=== PATIENT | male | born 2000 | race Caucasian/White ===

== ENCOUNTER 2021-02-24 22:36 | Emergency (ER) | payer OTHER ==
[2021-02-24 22:50] VITALS: BP 155/88; PULSE 79; RESP 22; TEMP 97.7
[2021-02-24] MEDS ORDERED: HYDROmorphone 0.5 MG/0.5 ML SYRINGE IM STA (23:15)
[2021-02-24] MEDS ORDERED: ACETAMINOPHEN TAB 500 MG TAB PO STA (23:15)
[2021-02-24] MEDS ORDERED: IBUPROFEN 800 MG TAB PO STA (23:15)
[2021-02-24] MEDS ORDERED: IBUPROFEN 600 MG STARTER PACK 4 TAB BTL PO STA (23:16)
[2021-02-24] MEDS ORDERED: ACET/COD 300 MG/30 MG STARTER PACK 6 TAB BTL PO STA (23:16)
--- NOTE | 2021-02-24 23:17 | ED ---
Burn/Smoke HPI - General Chief complaint: Burn/Smoke Inhalation Stated complaint: [facility] RT hand burn Time Seen by Provider: 02/24/21 23:05 Source: patient, family, RN notes reviewed, old records reviewed Mode of arrival: ambulatory Limitations: no limitations - History of Present Illness Initial comments: This is a 21-year-old male to the emergency department for evaluation patient did have a work-related thermal burn to his right thumb hand. It is blistering. Pain is severe. Patient has no other medical history takes no medications is in good health. No other burn is noted. Burn was due to patient cutting hand around ground getting splashed hot or MD Complaint: burn (2 right thumb) -: minutes(s) Type of Exposure: hot liquid (Oil) Smoke Inhalation: none Place: industrial Location - Extremities: Right: Hand Severity: moderate Severity scale (1-10): 6 Associated Symptoms: denies other symptoms Treatment Prior to Arrival: dressings - Related Data Allergies Allergy/AdvReac Type Severity Reaction Status Date / Time No Known Allergies Allergy Verified 02/24/21 22:49 Review of Systems ROS Statement: Those systems with pertinent positive or pertinent negative responses have been documented in the HPI. ROS Other: All systems not noted in ROS Statement are negative. Past Medical History Past Medical History: Asthma History of Any Multi-Drug Resistant Organisms: None Reported Past Surgical History: No Surgical Hx Reported Past Psychological History: No Psychological Hx Reported Smoking Status: Never smoker Past Alcohol Use History: None Reported Past Drug Use History: None Reported General Exam Limitations: no limitations General appearance: alert, in no apparent distress Head exam: Present: atraumatic, normocephalic, normal inspection Eye exam: Present: normal appearance, PERRL, EOMI. Absent: scleral icterus, conjunctival injection, periorbital swelling ENT exam: Present: normal exam, mucous membranes moist Neck exam: Present: normal inspection. Absent: tenderness, meningismus, lymphadenopathy Respiratory exam: Present: normal lung sounds bilaterally. Absent: respiratory distress, wheezes, rales, rhonchi, stridor Cardiovascular Exam: Present: regular rate, normal rhythm, normal heart sounds. Absent: systolic murmur, diastolic murmur, rubs, gallop, clicks GI/Abdominal exam: Present: soft, normal bowel sounds. Absent: distended, tenderness, guarding, rebound, rigid Extremities exam: Present: normal inspection, full ROM, normal capillary refill, other ( has thermal burn to right thumb, second degree). Absent: tenderness, pedal edema, joint swelling, calf tenderness Back exam: Present: normal inspection Neurological exam: Present: alert, oriented X3, CN II-XII intact Psychiatric exam: Present: normal affect, normal mood Skin exam: Present: warm, dry, intact, normal color. Absent: rash Course Vital Signs 02/24/21 22:45 Temperature 97.7 F Pulse Rate 79 Respiratory 22 Rate Blood Pressure 155/88 O2 Sat by Pulse 98 Oximetry - Reevaluation(s) Reevaluation #1: 02/25/21 02:52 Medical record is reviewed Reevaluation #2: 02/25/21 02:52 Wounds RT brightish here in the ER blisters opened and drained dressing is placed Reevaluation #3: 02/25/21 02:52 Patient is given strict wound care instructions 02/25/21 02:52 Patient family informed of results, questions answered Reevaluation #4: 02/25/21 02:52 Patient symptoms are significantly improved here in the ER Medical Decision Making - Medical Decision Making 21 male to the emergency department for evaluation of significant burn thermal burn to right thumb second-degree, patient symptoms are improved here in the ER patient can be discharged home Disposition Clinical Impression: Burn of hand, right, second degree, Burn of thumb, right, second degree, Th ermal burn Disposition: HOME SELF-CARE Condition: Good Instructions (If sedation given, give patient instructions): Superficial Burn (ED), Second Degree Burn (ED) Is patient prescribed a controlled substance at d/c from ED?: No Referrals: None,Stated [Primary Care Provider] - 1-2 days
== END 2021-02-24 23:40 | disposition home or self-care (01) ==
LOC: EC 22:36
DX: T23.211A Burn of second degree of right thumb (nail), initial encounter (principal); T31.0 Burns involving less than 10% of body surface; J45.909 Unspecified asthma, uncomplicated; X08.8XXA Exposure to other specified smoke, fire and flames, initial encounter
CPT/HCPCS: 99283; 96372; J1170